=== PATIENT | male | born 1980 | race African-American/Black ===

== ENCOUNTER 2020-09-25 08:03 | Day surgery (SDC) | payer OTHER ==
[2020-09-25] MEDS ORDERED: Ringers Lactate 1,000 ML IV ONE (08:34)
[2020-09-25] MEDS ORDERED: CEFAZOLIN/SWI 1gm 1 GM/10 ML SYR ONE (08:34)
[2020-09-25] MEDS ORDERED: LIDOCAINE 2% MPF 5 ML VIAL ONE (09:02)
[2020-09-25] MEDS ORDERED: propofoL 200 MG/20 ML VIAL IV ONE (09:02)
[2020-09-25] MEDS ORDERED: FENTANYL CITR 100 MCG/2 ML ONE (09:02)
[2020-09-25] MEDS ORDERED: MIDAZOLAM HCL 2 MG/2 ML INJ ONE (09:02)
[2020-09-25] MEDS ORDERED: BUPIVACAINE 0.25% PF 30 ML VIAL ONE (09:30)
--- NOTE | 2020-09-25 10:06 | P.OP ---
Preoperative diagnosis: Upper Back infected Sebaceous Cyst with abscess - right to midline Postoperative diagnosis: Upper Back infected Sebaceous Cyst with abscess - right to midline Primary procedure: Excision of Upper Back infected Sebaceous Cyst with abscess Secondary procedure: Application of DAREN Negative pressure therapy Anesthesia: GETA + Local Estimated blood loss: <10cc Specimen: Cultures and Debridement Tissue Findings: 11cm x 11cm Upper Back infected Sebaceous Cyst w abscess to muscle Drain(s): Other (DAREN) Transferred to: Recovery Room Condition: Good
[2020-09-25] MEDS ORDERED: dexAMETHasone 10 MG/ML VIAL ONE (10:09)
[2020-09-25] MEDS ORDERED: KETOROLAC 30 MG/ML INJ ONE (10:09)
[2020-09-25 10:28] VITALS: TEMP 97.4
[2020-09-25] MEDS ORDERED: ONDANSETRON 4 MG/2 ML VIAL ONE (10:30)
--- NOTE | 2020-09-25 10:51 | OP ---
Date of Procedure: 09/25/2020 Surgeon: Pedro Rubio MD, Preoperative Diagnosis: Upper back infected sebaceous cyst with abscess to the right of midline. Postoperative Diagnosis: Upper back infected sebaceous cyst with abscess to the right of midline. Procedure Performed: 1.Excision of upper back infected sebaceous cyst with abscess. 2.Application of a petey negative pressure therapy device. Anesthesia: General endotracheal plus local with 0.5% Marcaine with epinephrine. Estimated Blood Loss: Less than 10 mL. Specimen: Cultures and debridement tissue sent. Findings: 11 cm x 11 cm upper back infected sebaceous cyst with abscess extending to the muscle to t he right of midline. Drains: Petey negative pressure wound therapy device. Disposition: Transferred to recovery room in good condition. Procedure In Detail: After informed consent was obtained, the patient was brought to the operating r oom, prepped and draped in the usual sterile fashion after adequate anesthesia was achieved. A linea r incision was made down through subcutaneous tissues to the right of midline on the upper back area over an infected sebaceous cyst. Electrocautery was used to dissect down circumferentially dissectin g out the abscess and infected sebaceous cyst material. The cavity was opened at this point and cult ure was sent for both aerobic and anaerobic speciation. At this point circumferential dissection was used to remove the sac and the sebaceous material in its entirety. After this was completed, the ar ea was inspected for hemostatic efficacy. At this point, electrocautery was used to achieve hemostas is quite easily and the area was copiously irrigated multiple times and suctioned out until completel y clear. No additional hemostatic measures required. At this point, the skin was closed using a 2-0 nylon suture in interrupted fashion and a petey negative pressure wound therapy device applied over t he top. The patient tolerated the procedure well without evidence of complication and transferred to PACU in good condition. All counts were correct at the end of the case. MARION/MODL Voice ID: [id number] Report ID: [id number]
[2020-09-25] MEDS ORDERED: HYDROCODONE/APAP 10/325 TAB ONE (11:21)
[2020-09-25 11:45] VITALS: BP 122/54; O2SAT 95
== END 2020-09-25 11:45 | disposition home or self-care (01) ==
LOC: OR 08:03
PROVIDERS: ATTEND Surgery
PROC: 0JB70ZZ Excision of Back Subcutaneous Tissue and Fascia, Open Approach (ICD-10-PCS; principal; 2020-09-25 08:45)
DX: L72.0 Epidermal cyst (principal); Z20.822 Contact with and (suspected) exposure to COVID-19
CPT/HCPCS: 87070; 87205; 88304; 87075; 11406; U0002; J2704; J2250; J3010; J1100; J0690; J7120; J2405